=== PATIENT | female | born 1955 | race Two or more races ===

== ENCOUNTER 2017-12-30 07:21 | Day surgery (SDC) | payer OTHER ==
[2017-12-30] MEDS: LIDOCAINE 1%/EPI 30 ML INJ INJ
[2017-12-30] MEDS: NEOMYC/POLYMYX/BACIT 30 GM OINT TOP
[2017-12-30] MEDS ORDERED: PROCHLORPERAZINE 10 MG INJ IV (10:00)
[2017-12-30] MEDS ORDERED: DIPHENHYDRAMINE 50 MG INJ IV (10:00)
[2017-12-30] MEDS ORDERED: HYDROmorphONE (0.2 MG/ML) 10ML SYG IV (10:00)
[2017-12-30] MEDS ORDERED: OXYCODONE/ACETAMINOPHEN (5/325) TAB PO ×3 (10:00→11:30)
[2017-12-30] MEDS ORDERED: ONDANSETRON 4 MG INJ IV ×2 (10:00→11:30)
[2017-12-30] MEDS ORDERED: FENTAnyl 50 MCG/ML VIAL IV (10:00)
[2017-12-30] MEDS ORDERED: MEPERIDINE 25 MG INJ IV (10:00)
[2017-12-30] MEDS ORDERED: MIDAZOLAM 1 MG/ML 2 ML INJ (10:31)
[2017-12-30] MEDS ORDERED: FAMOTIDINE 20 MG INJ (10:33)
[2017-12-30] MEDS ORDERED: LIDOCAINE 2% (SDV) 5 ML INJ (10:33)
[2017-12-30] MEDS ORDERED: PROPOFOL 20 ML (10:33)
[2017-12-30] MEDS ORDERED: DEXAMETHASONE 4 MG/ML 1 ML INJ (10:34)
[2017-12-30] MEDS ORDERED: FENTAnyl 50 MCG/ML VIAL (10:34)
[2017-12-30] MEDS ORDERED: ONDANSETRON 4 MG INJ (10:34)
[2017-12-30] MEDS ORDERED: CEFAZOLIN 1 GM INJ (10:42)
[2017-12-30] MEDS ORDERED: EPHEDrine SULFATE 50 MG/5 ML SYG (10:52)
[2017-12-30] MEDS ORDERED: LIDOCAINE 1%/EPI 30 ML INJ (10:59)
[2017-12-30] MEDS ORDERED: NEOMYC/POLYMYX/BACIT 30 GM OINT (11:11)
[2017-12-30] MEDS ORDERED: morphine 2 MG INJ IV (11:30)
== END 2017-12-30 13:21 | disposition home or self-care (01) ==
LOC: SDS 07:21
DX: L72.11 Pilar cyst (principal); E66.9 Obesity, unspecified; Z68.34 Body mass index [BMI] 34.0-34.9, adult
CPT/HCPCS: 11423; 88307